=== PATIENT | male | born 1960 | race African-American/Black ===

== ENCOUNTER 2018-04-16 19:29 | Inpatient (IN) | payer MEDICARE, MEDICAID ==
[~2018-04-16] VITALS: Ht 177.8 cm; Wt 77.1 kg
--- NOTE | 2018-04-16 19:50 | NUR ---
BB AMBULANCE FROM [facility], PER STAFF PT WAS BEING "AGGRESSIVE TOWARDS STAFF". PT NOTED TO BE AAOX1, SPEECH UNCLEAR D/T PT MUMBLING IN A LOW TONE. VSS. RESP EVEN AND UNLABORED. NO S/S OF ACUTE DISTRESS NOTED. PT SAFETY AND COMFORT MEASURES IN PLACE. PT PLACED IN GOWN AND FERRYBOAT OPERATOR HELPER AND POX. SI PRECAUTIONS IN PLACE. AWAITING MD FOR EVAL. WILL CONTINUE TO MONITOR PT.
[2018-04-16 20:02] LABS: BASOPHILS # (AUTO) 0.1 /CMM (0.0-0.2); BASOPHILS % (AUTO) 1.5 % (0.0-2.0); EOSINOPHILS % (AUTO) 4.4 % (0.0-6.0); HEMATOCRIT 33 % (39-51); HEMOGLOBIN 11.4 g/dL (13.5-17.5); LYMPHOCYTES # (AUTO) 1.2 /CMM (0.8-4.8); LYMPHOCYTES % (AUTO) 33.2 % (20.0-44.0); MEAN CORPUSCULAR HGB CONC 35 g/dl (31.0-36.0); MEAN CORPUSCULAR VOLUME 91 fL (80-96); MONOCYTES # (AUTO) 0.3 /CMM (0.1-1.30); MONOCYTES % (AUTO) 7.2 % (2.0-12.0); NEUTROPHILS # (AUTO) 1.9 /CMM (1.8-8.9); NEUTROPHILS % (AUTO) 53.7 % (43.0-81.0); PLATELET COUNT (AUTO) 185 /CMM (150-450); RDW COEFFICIENT OF VARIATION 13.9 (11.5-15.0); WHITE BLOOD COUNT (AUTO) 3.7 K/uL (4.3-11.0)
[2018-04-16 20:09] LABS: CALCIUM, SERUM 8.8 mg/dL (8.5-10.1); CARBON DIOXIDE 30 mmol/L (21-32); CHLORIDE 104 mmol/L (98-107); CREATININE 1.3 mg/dL (0.6-1.3); GLUCOSE 106 mg/dL (74-106); POTASSIUM 3.7 mmol/L (3.5-5.1); SODIUM SERUM 140 mmol/L (136-145); UREA NITROGEN, BLOOD 23 mg/dL (7-18)
[2018-04-16 20:15] LABS: ALANINE AMINOTRANSFERASE 37 U/L (12-78); ALBUMIN 3.9 g/dL (3.4-5.0); ALCOHOL, BLOOD < 3 mg/dL (0-0); ALKALINE PHOSPHATASE 61 U/L (46-116); ASPARTATE AMINOTRANSFERASE 52 U/L (15-37); BILIRUBIN,DIRECT 0.2 mg/dL (0.0-0.2); TOTAL PROTEIN, SERUM 7.2 g/dL (6.4-8.2)
[2018-04-16 20:16] LABS: ACETAMINOPHEN 0 ug/ml (10-30); SALICYLATE < 0.2 mg/dL (2.8-20.0)
--- NOTE | 2018-04-16 20:17 | NUR ---
URINE SAMPLE COLLECTED AND CALLED LAB FOR PICKUP
[2018-04-16 21:20] LABS: APPEARANCE,URINE SL CLOUDY (CLEAR); BILIRUBIN,URINE NEGATIVE (NEGATIVE); BLOOD, URINE NEGATIVE Ery/uL (NEGATIVE); COLOR,URINE YELLOW (YELLOW); KETONES,URINE NEGATIVE (NEGATIVE); LEUKOCYTE ESTERASE ,URINE NEGATIVE (NEGATIVE); NITRITE, URINE NEGATIVE (NEGATIVE); PROTEIN,URINE NEGATIVE (NEGATIVE); UGLUCOSE NEGATIVE (NEGATIVE)
--- NOTE | 2018-04-16 21:31 | NUR ---
RAJI APPIAH [phone]
[2018-04-16 21:33] LABS: BACTERIA,URINE None seen /HPF (None Seen); RBC,URINE 0-2 /HPF (0-2); SQUAMOUS EPITHELIAL CELL,UR Rare /HPF (None Seen); WBC,URINE 0-2 /HPF (0-3)
--- NOTE | 2018-04-16 21:56 | NUR ---
Patient is resting comfortably in bed with eyes closed. Easily aroused. VSS. WILL CONTINUE TO MONITOR PT'S SAFETY
--- NOTE | 2018-04-16 22:07 | NUR ---
PINKY AT BEDSIDE FOR EVAL.
--- NOTE | 2018-04-16 22:21 | NUR ---
PT ASSIGNED TO DR. BONITA VILLALOBOS
--- NOTE | 2018-04-16 22:36 | NUR ---
REPORT GIVEN TO MAGGIE VESSEL CREW MEMBER CLAY FOR YARY.
[2018-04-16 23:00] VITALS: BP 136/88
--- NOTE | 2018-04-16 23:00 | NUR ---
GPS ADMISSION NOTE, RECEIVED PATIENT FROM [facility] PATIENT ARRIVED ON THIS UNIT AT 2300 VIA STRETCHER WITH 1 FLOOR TRADER ESCORT. PATIENT ADMITTED ON A 5150 HOLD FOR DTO & GD. PER HOLD PATIENT CONFUSED, DISORGANIZED, PHYSICALLY THREATENING STAFF MEMBERS AT FACILITY. PATIENT UNABLE TO CONTRACT FOR SAFETY. THE 5150 WAS REVIEWED AND THE DOCUMENTATION IN THE 5150 HOLD APPEARS TO REFLECT THE PRESENTATION OF THE PATIENT. UPON FACE TO FACE ASSESSMENT PATIENT IS CURRENTLY LYING IN BED AWAKE, HAS NO S/S OR COMPLAINTS OF PAIN. PATIENT IS DISPLAYING NO S/S OF APPARENT DISTRESS. PATIENT BREATHING IS UNLABORED WITH EQUAL RISE AND FALL OF THE CHEST. PATIENT IS ALERT AND ORIENTATED X 1. ON ROOM AIR. PATIENT ASSISTED WITH TURING AND REPOSITIONING Q2HR AND PRN FOR COMFORT AND CIRCULATION. PATIENT HAS NO NEEDS AT THIS TIME. PATIENT IS NOTED TO BEING CONFUSED, DISHEVELED, DISORGANIZED, UNCOOPERATIVE, MUMBLING TO SELF AND NEEDS REDIRECTION. PATIENT IS UNDER THE PSYCHIATRIC CARE OF DR. NOLAN AND THE MEDICAL CARE OF DR REYES. PATIENT BELONGINGS WERE INVENTORIED AND CHECKED FOR CONTRABAND. ALL CONTRABAND REMOVED AND STORED IN PATIENT HALLWAY LOCKER. PATIENT ADVANCED DIRECTIVES PREFERENCE, IMMUNIZATIONS QUESTIONER, NECESSARY PAPERWORK, BUT SKIN ASSESSMENT WAS REFUSED BY PATIENT. PATIENT ORIENTATED TO ROOM, FLOOR, AND STAFF WITH ALL QUESTIONS ANSWERED. PATIENT EDUCATED ON THE USE OF THE CALL SOLIMAN. PATIENT BED SIDE RAILS ARE UP X 2 FOR SAFETY. PATIENT BED IS LOCKED, LOW AND I WILL CONTINUE TO MONITOR THIS PATIENT Q 15 MIN WITH THE HELP OF STAFF TO MAINTAIN SAFETY.
[2018-04-16] MEDS ORDERED: DOCU-141 PO (23:19)
[2018-04-16] MEDS ORDERED: MULT1TAB73 PO (23:20)
[2018-04-16] MEDS ORDERED: FERR325T23 PO (23:21)
[2018-04-16] MEDS ORDERED: GABA-532 PO (23:21)
[2018-04-16] MEDS ORDERED: HALO5TAB PO (23:22)
[2018-04-16] MEDS ORDERED: HYDR-4077 PO (23:22)
[2018-04-16] MEDS ORDERED: ESCI10TA PO (23:23)
[2018-04-16] MEDS ORDERED: METO50TA16 PO (23:25)
[2018-04-16] MEDS ORDERED: HYDR50CA PO (23:26)
[2018-04-16] MEDS ORDERED: ZOLPIDEM TARTRATE 5 MG TABLET PO PRN (23:30)
[2018-04-16] MEDS ORDERED: MAGNESIUM HYDROXIDE 30 ML UDC PO PRN (23:30)
[2018-04-16] MEDS ORDERED: ACETAMINOPHEN 325 MG TABLET PO PRN (23:30)
[2018-04-16] MEDS ORDERED: MAG HYDROX/AL HYDROX/SIMETH 30 ML UDC PO PRN (23:30)
[2018-04-17 07:18] LABS: CREATININE 1.2 mg/dL (0.6-1.3)
[2018-04-17 07:22] LABS: CHOLESTEROL 162 mg/dL (<200); HDL CHOLESTEROL 48 mg/dL (40-60); LDL 112 mg/dL (0-99); TRIGLYCERIDES 53 mg/dL (30-150)
[2018-04-17 08:04] VITALS: BP 132/80
[2018-04-17] MEDS: hydrALAZINE HCL 50 MG TABLET PO SCH ×2 (08:20→16:15)
[2018-04-17] MEDS: METOPROLOL TARTRATE 50 MG TABLET PO SCH ×2 (08:20→16:14)
[2018-04-17] MEDS: FERROUS SULFATE (325 MG) 325 MG/TAB TABLET PO SCH (08:21)
[2018-04-17] MEDS: DOCUSATE SODIUM 100 MG CAPSULE PO SCH ×2 (08:21→16:14)
[2018-04-17] MEDS: GABAPENTIN 100 MG CAPSULE PO SCH ×3 (08:21→16:14)
[2018-04-17] MEDS ORDERED: QUETIAPINE FUMARATE 25 MG TABLET PO PRN (10:00)
[2018-04-17] MEDS: risperiDONE 1 MG TABLET PO SCH ×2 (14:10→21:48)
[2018-04-17] MEDS: OXCARBAZEPINE 150 MG TABLET PO SCH ×2 (14:10→21:48)
[2018-04-17 16:14] VITALS: BP 148/52
--- NOTE | 2018-04-17 16:19 | NUR ---
SW spoke to pt's DPOA, Brigid Montez , for collateral information regarding the psychosocial assessment.
--- NOTE | 2018-04-17 19:35 | NUR ---
GPS RN NOTE: RECEIVED PATIENT ASLEEP AND SITTING UP IN UBALDO-CHAIR WITH 1:1 IN DAY ROOM BUT AWAKENED TO NAME, NO S/S OR COMPLAINTS OF PAIN AT THIS TIME. PATIENT DISPLAYING NO S/S OF APPARENT DISTRESS AT THIS TIME. PATIENT IS CONFUSED AND ORIENTED X 1. PATIENT DENIES SUICIDE IDEATIONS AND HOMICIDAL IDEATIONS AT THIS TIME. WILL CONTINUE TO MONITOR AND MAINTAIN AND MAINTAIN SAFETY.
[2018-04-17 20:00] VITALS: BP 119/80
[2018-04-18 08:00] VITALS: BP 139/86
[2018-04-18] MEDS: OXCARBAZEPINE 150 MG TABLET PO SCH ×3 (08:09→21:32)
[2018-04-18] MEDS: DOCUSATE SODIUM 100 MG CAPSULE PO SCH ×2 (08:09→16:25)
[2018-04-18] MEDS: METOPROLOL TARTRATE 50 MG TABLET PO SCH ×2 (08:09→16:25)
[2018-04-18] MEDS: FERROUS SULFATE (325 MG) 325 MG/TAB TABLET PO SCH (08:09)
[2018-04-18] MEDS: hydrALAZINE HCL 50 MG TABLET PO SCH ×2 (08:10→16:25)
[2018-04-18] MEDS: GABAPENTIN 100 MG CAPSULE PO SCH ×3 (08:10→16:26)
[2018-04-18] MEDS: risperiDONE 1 MG TABLET PO SCH ×2 (08:10→21:31)
--- NOTE | 2018-04-18 12:40 | NUR ---
Initial Discharge Plan: [place] [address] [ ]. SW will follow up with the facility about the plan of action. SW will follow up with the MD and the pt's DPOA, Brigid Montez , regarding the most appropriate discharge plan. SW will form a safe and proper discharge.
--- NOTE | 2018-04-18 15:23 | NUR ---
SW spoke to Mari from [facility] about the pt's bed hold which will be over on 04/23/18.
[2018-04-18 16:18] VITALS: BP 109/78
[2018-04-18 20:08] VITALS: BP 112/73
[2018-04-19 08:00] VITALS: BP 154/76
[2018-04-19] MEDS: hydrALAZINE HCL 50 MG TABLET PO SCH ×2 (08:36→16:56)
[2018-04-19] MEDS: DOCUSATE SODIUM 100 MG CAPSULE PO SCH ×2 (08:36→16:55)
[2018-04-19] MEDS: GABAPENTIN 100 MG CAPSULE PO SCH ×3 (08:36→16:55)
[2018-04-19] MEDS: FERROUS SULFATE (325 MG) 325 MG/TAB TABLET PO SCH (08:36)
[2018-04-19] MEDS: OXCARBAZEPINE 150 MG TABLET PO SCH ×3 (08:36→21:40)
[2018-04-19] MEDS: METOPROLOL TARTRATE 50 MG TABLET PO SCH ×2 (08:37→16:56)
[2018-04-19] MEDS ORDERED: risperiDONE 1 MG TABLET PO SCH (09:00)
[2018-04-19 16:00] VITALS: BP 113/75
[2018-04-19 20:00] VITALS: BP 104/70
[2018-04-19] MEDS: risperiDONE 1 MG TABLET PO SCH (21:40)
[2018-04-20 07:56] VITALS: BP 108/78
[2018-04-20] MEDS: METOPROLOL TARTRATE 50 MG TABLET PO SCH ×2 (08:21→16:22)
[2018-04-20] MEDS: GABAPENTIN 100 MG CAPSULE PO SCH ×3 (08:21→16:12)
[2018-04-20] MEDS: DOCUSATE SODIUM 100 MG CAPSULE PO SCH ×2 (08:21→16:12)
[2018-04-20] MEDS: OXCARBAZEPINE 150 MG TABLET PO SCH ×3 (08:21→21:28)
[2018-04-20] MEDS: risperiDONE 1 MG TABLET PO SCH ×2 (08:21→21:27)
[2018-04-20] MEDS: FERROUS SULFATE (325 MG) 325 MG/TAB TABLET PO SCH (08:21)
[2018-04-20] MEDS: hydrALAZINE HCL 50 MG TABLET PO SCH ×2 (08:22→16:12)
[2018-04-20 15:53] VITALS: BP 135/74
[2018-04-20 19:52] VITALS: BP 129/91
[2018-04-21 07:49] VITALS: BP 115/73
[2018-04-21] MEDS: DOCUSATE SODIUM 100 MG CAPSULE PO SCH ×2 (08:22→16:11)
[2018-04-21] MEDS: FERROUS SULFATE (325 MG) 325 MG/TAB TABLET PO SCH (08:22)
[2018-04-21] MEDS: METOPROLOL TARTRATE 50 MG TABLET PO SCH ×2 (08:22→16:12)
[2018-04-21] MEDS: risperiDONE 1 MG TABLET PO SCH ×2 (08:22→21:28)
[2018-04-21] MEDS: hydrALAZINE HCL 50 MG TABLET PO SCH ×2 (08:22→16:12)
[2018-04-21] MEDS: GABAPENTIN 100 MG CAPSULE PO SCH ×3 (08:23→16:11)
[2018-04-21] MEDS: OXCARBAZEPINE 150 MG TABLET PO SCH ×3 (08:24→21:28)
[2018-04-21 15:55] VITALS: BP 108/55
[2018-04-21 19:51] VITALS: BP 145/75
[2018-04-22 08:00] VITALS: BP 133/81
[2018-04-22] MEDS: hydrALAZINE HCL 50 MG TABLET PO SCH ×2 (08:19→16:08)
[2018-04-22] MEDS: DOCUSATE SODIUM 100 MG CAPSULE PO SCH ×2 (08:19→16:07)
[2018-04-22] MEDS: OXCARBAZEPINE 150 MG TABLET PO SCH ×3 (08:19→21:37)
[2018-04-22] MEDS: FERROUS SULFATE (325 MG) 325 MG/TAB TABLET PO SCH (08:20)
[2018-04-22] MEDS: METOPROLOL TARTRATE 50 MG TABLET PO SCH ×2 (08:20→16:07)
[2018-04-22] MEDS: risperiDONE 1 MG TABLET PO SCH ×2 (08:20→21:37)
[2018-04-22] MEDS: GABAPENTIN 100 MG CAPSULE PO SCH ×3 (08:20→16:07)
[2018-04-22 16:00] VITALS: BP 138/90
--- NOTE | 2018-04-22 19:05 | NUR ---
GPS-RN RECEIVED PATIENT UP IN CHAIR TOLERATED. NO ACUTE DISTRESS NOTED. PATIENT APPEARS CONFUSED, NO MANIFESTATION OF PAIN OR DISCOMFORT NOTED. ALL NEEDS ATTENDED AND ANTICIPATED. SAFETY PRECAUTIONS MAINTAINED. WILL CONTINUE TO MONITOR [id number] ROUNDS FOR SAFETY. 1939 - CALLED TO MY ATTENTION BY HEAD TEACHER IN THE DAY ROOM, RESPONDED BY TEAM TO ASSESS PATIENT. V/S TAKEN AND NOTED BP 114/77, R-19, P-81, T-98.1, O2 SATURATION @ 52%. REPOSITIONED PATIENT FOR COMFORT, RESPONSIVE TO TACTILE AND VERBAL STIMULI. CALLED RAPID RESPONSE AND CANCELLED DUE TO PATIENT IS BACK TO HIS NORMAL BASELINE. V/S STABLE AND O2 SATURATION WENT UP TO 95%. PATIENT PLACED BACK TO BED, HOB ELEVATED. SIDE RAILS UP. PATIENT WAS PLACED ON 1:1 SITTER FOR SAFETY. WILL MONITOR CLOSELY. 2129 - PATIENT ASLEEP, EASILY AROUSABLE, NO ACUTE RESPIRATORY OR DISTRESS NOTED, PATIENT TOOK HIS SCHEDULED MEDS, TOLERATED-WELL. WILL CONTINUE TO MONITOR.
[2018-04-22 20:17] VITALS: BP 114/77
[2018-04-23 08:00] VITALS: BP 97/69
[2018-04-23] MEDS: hydrALAZINE HCL 50 MG TABLET PO SCH ×2 (09:00→16:37)
[2018-04-23] MEDS: FERROUS SULFATE (325 MG) 325 MG/TAB TABLET PO SCH (09:01)
[2018-04-23] MEDS: DOCUSATE SODIUM 100 MG CAPSULE PO SCH ×2 (09:01→16:37)
[2018-04-23] MEDS: METOPROLOL TARTRATE 50 MG TABLET PO SCH ×2 (09:02→16:37)
[2018-04-23] MEDS: OXCARBAZEPINE 150 MG TABLET PO SCH ×3 (09:02→21:03)
[2018-04-23] MEDS: risperiDONE 0.25 MG TABLET PO SCH (09:02)
[2018-04-23] MEDS: GABAPENTIN 100 MG CAPSULE PO SCH ×3 (09:03→16:37)
--- NOTE | 2018-04-23 11:28 | NUR ---
JEY spoke to pt's DPOA, Brigid Montez , and informed her that the pt will be discharging on 04/25/18. DPOA is in agreement with the discharge plan of the pt returning to [facility].
--- NOTE | 2018-04-23 11:33 | NUR ---
JEY spoke to Mari from [facility] and informed her that the pt will be discharging on Saturday. JEY then faxed over a clinical to Mari ( ).
[2018-04-23] MEDS ORDERED: risperiDONE 1 MG TABLET PO ONE (15:30)
[2018-04-23 15:58] VITALS: BP 131/65
--- NOTE | 2018-04-23 19:45 | NUR ---
RN NOTES GPS RN NOTE: RECEIVED PATIENT ASLEEP LYING IN BED WITH 1:1 SITTER IN PATIENT ROOM BUT AWAKENED TO NAME, NO S/S OR COMPLAINTS OF PAIN AT THIS TIME. PATIENT DISPLAYING NO S/S OF APPARENT DISTRESS AT THIS TIME. PATIENT IS CONFUSED AND ORIENTED X 1. PATIENT DENIES SUICIDE IDEATIONS AND HOMICIDAL IDEATIONS AT THIS TIME. WILL CONTINUE TO MONITOR AND MAINTAIN AND MAINTAIN SAFETY.
[2018-04-23] MEDS: risperiDONE 1 MG TABLET PO SCH (20:15)
[2018-04-23 20:29] VITALS: BP 132/76
[2018-04-24 08:00] VITALS: BP 140/85
[2018-04-24] MEDS: hydrALAZINE HCL 50 MG TABLET PO SCH ×2 (08:34→17:36)
[2018-04-24] MEDS: DOCUSATE SODIUM 100 MG CAPSULE PO SCH ×2 (08:34→17:35)
[2018-04-24] MEDS: GABAPENTIN 100 MG CAPSULE PO SCH ×3 (08:34→17:35)
[2018-04-24] MEDS: FERROUS SULFATE (325 MG) 325 MG/TAB TABLET PO SCH (08:34)
[2018-04-24] MEDS: METOPROLOL TARTRATE 50 MG TABLET PO SCH ×2 (08:38→17:39)
[2018-04-24] MEDS: OXCARBAZEPINE 150 MG TABLET PO SCH ×3 (08:39→21:50)
[2018-04-24] MEDS: risperiDONE 0.25 MG TABLET PO SCH (08:39)
--- NOTE | 2018-04-24 09:37 | NUR ---
SW spoke to Mari from [facility] and she stated that the pt needs to be assessed by someone from their team before being discharged and that may not be possible until Saturday.
[2018-04-24 16:00] VITALS: BP 139/80
--- NOTE | 2018-04-24 16:03 | NUR ---
JEY spoke to the psychiatrist, Dr. Yoon ([phone]), and agreed that the pt's discharge will be put on hold and will be set for Saturday at the earliest.
--- NOTE | 2018-04-24 16:04 | NUR ---
SW spoke to pt's DPOA, Brigid Montez , and updated her about the change in the discharge plan.
--- NOTE | 2018-04-24 19:30 | NUR ---
GPS RN NOTE, RECEIVED PATIENT AWAKE AND IN BED, NO S/S OR COMPLAINTS OF PAIN AT THIS TIME. PATIENT DISPLAYING NO S/S OF APPARENT DISTRESS AT THIS TIME. PATIENT BREATHING IS UNLABORED WITH EQUAL RISE AND FALL OF THE CHEST. PATIENT ALERT AND ORIENTED X 1 WITH A SPO2 97%. PATIENT IS MED COMPLIANT, CONFUSED, DISORGANIZED, ANXIOUS, COOPERATIVE, NEEDS REORIENTATION. PATIENT DENIES SUICIDE IDEATIONS AND HOMICIDAL IDEATIONS AT THIS TIME. PATIENT ASSISTED WITH TURNING AND REPOSITIONING Q2HR AND PRN FOR COMFORT AND CIRCULATION. PATIENT HAS NO NEEDS AT THIS TIME. PATIENT EDUCATED ON THE USE OF THE CALL SOLIMAN. PATIENT BED SIDE RAILS UP X2 FOR SAFETY, BED IS LOCKED AND LOW WILL CONTINUE TO MONITOR AND MAINTAIN AND MAINTAIN SAFETY.
[2018-04-24 20:34] VITALS: BP 137/88
[2018-04-24] MEDS: risperiDONE 1 MG TABLET PO SCH (21:49)
[2018-04-25 08:00] VITALS: BP 116/66
[2018-04-25] MEDS: FERROUS SULFATE (325 MG) 325 MG/TAB TABLET PO SCH (08:59)
[2018-04-25] MEDS: DOCUSATE SODIUM 100 MG CAPSULE PO SCH ×2 (08:59→17:25)
[2018-04-25] MEDS: hydrALAZINE HCL 50 MG TABLET PO SCH ×2 (08:59→17:26)
[2018-04-25] MEDS: METOPROLOL TARTRATE 50 MG TABLET PO SCH ×2 (09:00→17:26)
[2018-04-25] MEDS: OXCARBAZEPINE 150 MG TABLET PO SCH ×3 (09:02→21:13)
[2018-04-25] MEDS: risperiDONE 0.25 MG TABLET PO SCH (09:02)
[2018-04-25] MEDS: GABAPENTIN 100 MG CAPSULE PO SCH ×3 (09:02→17:26)
--- NOTE | 2018-04-25 13:26 | NUR ---
GPS KINDERGARTEN TUTOR: NOTES AFTERNOON MEDS HELD DUE TO DROWSINESS. PT UP IN GERICHAIR IN THE DINING ROOM WITH EYES CLOSE, APPEARS VERY SLEEPY. MONITORED CLOSELY. WILL CONTINUE TO MONITOR.
--- NOTE | 2018-04-25 14:00 | NUR ---
JEY spoke to Mari from [facility] and she stated that someone is going to come and assess the pt on Saturday, April 28 around lunch time. Pt will then be discharged that day if the facility accepts him.
[2018-04-25 15:56] VITALS: BP 114/77
[2018-04-25 20:03] VITALS: BP 121/74
[2018-04-25] MEDS: risperiDONE 1 MG TABLET PO SCH (21:12)
[2018-04-26 08:00] VITALS: BP 137/68
[2018-04-26] MEDS: DOCUSATE SODIUM 100 MG CAPSULE PO SCH ×2 (10:23→17:38)
[2018-04-26] MEDS: GABAPENTIN 100 MG CAPSULE PO SCH ×3 (10:23→17:38)
[2018-04-26] MEDS: risperiDONE 0.25 MG TABLET PO SCH (10:24)
[2018-04-26] MEDS: FERROUS SULFATE (325 MG) 325 MG/TAB TABLET PO SCH (10:25)
[2018-04-26] MEDS: METOPROLOL TARTRATE 50 MG TABLET PO SCH ×2 (10:25→17:00)
[2018-04-26] MEDS: hydrALAZINE HCL 50 MG TABLET PO SCH ×2 (10:25→17:00)
[2018-04-26] MEDS: OXCARBAZEPINE 150 MG TABLET PO SCH ×3 (10:28→21:28)
--- NOTE | 2018-04-26 13:40 | NUR ---
DR. NOLAN IN INQUIRING ABOUT MEDS,AWARE PARTIALLY TOOK MEDS AND GROGGY.ADDITIONALLY TOLD HIM NO MEDS GIVEN ON DAY SHIFT YESTERDAY.
[2018-04-26 16:00] VITALS: BP 117/73
[2018-04-26 20:00] VITALS: BP 113/69
[2018-04-26] MEDS: risperiDONE 1 MG TABLET PO SCH (21:00)
--- NOTE | 2018-04-27 00:53 | NUR ---
Pt has been combative on approach, easily irritable, & initially refusing his meds but took them later. He has also been very confused/fragmented.
[2018-04-27] MEDS: risperiDONE 0.25 MG TABLET PO SCH (07:58)
[2018-04-27] MEDS: GABAPENTIN 100 MG CAPSULE PO SCH ×3 (07:58→16:56)
[2018-04-27] MEDS: DOCUSATE SODIUM 100 MG CAPSULE PO SCH ×2 (07:58→16:56)
[2018-04-27] MEDS: FERROUS SULFATE (325 MG) 325 MG/TAB TABLET PO SCH (07:58)
[2018-04-27] MEDS: METOPROLOL TARTRATE 50 MG TABLET PO SCH ×2 (07:59→16:57)
[2018-04-27] MEDS: hydrALAZINE HCL 50 MG TABLET PO SCH ×2 (07:59→16:57)
[2018-04-27] MEDS: OXCARBAZEPINE 150 MG TABLET PO SCH ×3 (07:59→21:18)
[2018-04-27 08:00] VITALS: BP 146/96
[2018-04-27 16:12] VITALS: BP 114/81
[2018-04-27 20:02] VITALS: BP 125/65
[2018-04-27] MEDS: risperiDONE 1 MG TABLET PO SCH (21:17)
[2018-04-28 08:00] VITALS: BP 117/87
[2018-04-28] MEDS: risperiDONE 0.25 MG TABLET PO SCH (08:18)
[2018-04-28] MEDS: GABAPENTIN 100 MG CAPSULE PO SCH ×3 (08:18→16:35)
[2018-04-28] MEDS: FERROUS SULFATE (325 MG) 325 MG/TAB TABLET PO SCH (08:18)
[2018-04-28] MEDS: DOCUSATE SODIUM 100 MG CAPSULE PO SCH ×2 (08:18→16:34)
[2018-04-28] MEDS: OXCARBAZEPINE 150 MG TABLET PO SCH ×3 (08:19→21:42)
[2018-04-28] MEDS: hydrALAZINE HCL 50 MG TABLET PO SCH ×2 (08:19→16:35)
[2018-04-28] MEDS: METOPROLOL TARTRATE 50 MG TABLET PO SCH ×2 (08:20→16:35)
--- NOTE | 2018-04-28 09:15 | NUR ---
JEY spoke to Mari from [facility] to confirm that someone would be coming to assess the pt after lunch.
--- NOTE | 2018-04-28 09:47 | NUR ---
WOUND CARE CONSULT: PT AGITATED AND COMBATIVE AT TIMES. RECOMMENDATIONS MADE FOR DRY SKIN AND SKIN PROTECTION. DISCUSSED WITH NURSING STAFF. WILL SEE PT PT CONDITION PERMITS.
[2018-04-28] MEDS ORDERED: Z GUARD REMEDY 2 OZ OINT TP PRN (10:00)
[2018-04-28] MEDS: MINERAL OIL/PETROLATUM,WHITE 120 GM JAR TP SCH (13:39)
--- NOTE | 2018-04-28 15:45 | NUR ---
JEY spoke to Mari from [facility] and she stated that the assessors will be conducting their assessment tomorrow morning because they were unable to come today.
[2018-04-28 16:00] VITALS: BP 129/74
[2018-04-28 19:42] VITALS: BP 150/82
[2018-04-28] MEDS: risperiDONE 1 MG TABLET PO SCH (21:42)
[2018-04-29 08:00] VITALS: BP 111/67
[2018-04-29] MEDS: DOCUSATE SODIUM 100 MG CAPSULE PO SCH ×2 (09:00→17:35)
[2018-04-29] MEDS: risperiDONE 0.25 MG TABLET PO SCH (09:00)
[2018-04-29] MEDS: METOPROLOL TARTRATE 50 MG TABLET PO SCH ×2 (09:00→17:34)
[2018-04-29] MEDS: MINERAL OIL/PETROLATUM,WHITE 120 GM JAR TP SCH (09:00)
[2018-04-29] MEDS: hydrALAZINE HCL 50 MG TABLET PO SCH ×2 (09:00→17:35)
[2018-04-29] MEDS: GABAPENTIN 100 MG CAPSULE PO SCH ×3 (09:00→17:35)
[2018-04-29] MEDS: FERROUS SULFATE (325 MG) 325 MG/TAB TABLET PO SCH (09:00)
[2018-04-29] MEDS: OXCARBAZEPINE 150 MG TABLET PO SCH ×3 (09:00→22:11)
--- NOTE | 2018-04-29 15:23 | NUR ---
SW had the other vp digital marketing social media and crm, Brigette, speak to the assessors due to orientation and the assessors stated that the pt was denied to return to [facility].
--- NOTE | 2018-04-29 15:23 | NUR ---
SW faxed referrals for the pt to [facility], [facility], [facility] [employer], and [facility].
[2018-04-29 16:00] VITALS: BP 127/78
[2018-04-29 20:38] VITALS: BP 115/69
[2018-04-29] MEDS: risperiDONE 1 MG TABLET PO SCH (21:52)
[2018-04-30 08:00] VITALS: BP 125/63
--- NOTE | 2018-04-30 08:43 | NUR ---
SW spoke to Bertin ([phone]) from [facility] and Vasiliy from [facility] ([phone]) who both denied the pt's referral.
[2018-04-30] MEDS: DOCUSATE SODIUM 100 MG CAPSULE PO SCH ×2 (09:05→16:34)
[2018-04-30] MEDS: risperiDONE 0.25 MG TABLET PO SCH (09:06)
[2018-04-30] MEDS: GABAPENTIN 100 MG CAPSULE PO SCH ×3 (09:06→16:34)
[2018-04-30] MEDS: FERROUS SULFATE (325 MG) 325 MG/TAB TABLET PO SCH (09:06)
[2018-04-30] MEDS: OXCARBAZEPINE 150 MG TABLET PO SCH ×3 (09:06→21:35)
[2018-04-30] MEDS: hydrALAZINE HCL 50 MG TABLET PO SCH ×2 (09:06→16:39)
[2018-04-30] MEDS: METOPROLOL TARTRATE 50 MG TABLET PO SCH ×2 (09:06→16:34)
[2018-04-30] MEDS: MINERAL OIL/PETROLATUM,WHITE 120 GM JAR TP SCH (09:07)
--- NOTE | 2018-04-30 14:46 | NUR ---
SW spoke to the advertising coordinator at [facility] ([phone]) and faxed more information over because it was confirmed that the pt will be discharging to their facility tomorrow, May 01, at 11:00AM.
--- NOTE | 2018-04-30 14:50 | NUR ---
SW spoke to pt's DPOA, Brigid Montez , and discussed the new discharge plan that will be occurring tomorrow, May 01.
[2018-04-30 16:00] VITALS: BP 117/75
[2018-04-30] MEDS ORDERED: GABAPENTIN 300 MG CAPSULE PO SCH (17:30)
[2018-04-30 20:26] VITALS: BP 140/86
[2018-04-30] MEDS: risperiDONE 1 MG TABLET PO SCH (21:35)
[2018-05-01 08:00] VITALS: BP 139/78
[2018-05-01] MEDS: OXCARBAZEPINE 150 MG TABLET PO SCH (08:45)
[2018-05-01] MEDS: hydrALAZINE HCL 50 MG TABLET PO SCH (08:45)
[2018-05-01 08:46] VITALS: BP 139/78
[2018-05-01] MEDS: FERROUS SULFATE (325 MG) 325 MG/TAB TABLET PO SCH (08:46)
[2018-05-01] MEDS: DOCUSATE SODIUM 100 MG CAPSULE PO SCH (08:46)
[2018-05-01] MEDS: MINERAL OIL/PETROLATUM,WHITE 120 GM JAR TP SCH (08:46)
[2018-05-01] MEDS: risperiDONE 0.25 MG TABLET PO SCH (08:46)
[2018-05-01] MEDS: METOPROLOL TARTRATE 50 MG TABLET PO SCH (08:46)
--- NOTE | 2018-05-01 12:10 | NUR ---
GPS/RN PATIENT CLEARED FOR DISCHARGE TO [facility] BY DR NOLAN AND DR CALVILLO. MEDICATIONS RECONCILED BY BOTH [facility] AND MED RECON FAXED TO FACILITY. PATIENT IS UNABLE TO SIGNS D/C PAPERWORK, COSIGNED BY 2 RN AND BELONGINGS RETURNED TO PATIENT. PATIENT DENIES SI/HI/AH UPON DISCHARGE, PSYCHIATRIC TREATMENT PLANS MET,PATIENT IS ALERT X 1 AND CONFUSED NO AGGRESSION OR AGITATION DURING SHIFT. REPORT GIVEN TO ASHLEIGH AT FACILITY, PATIENT REFUSED D/C PHOTO, LEFT UNIT CALM, COOPERATIVE, NO DISTRESS NOTED WITH AMBULANCE TRANSPORT AT SIDE.
--- NOTE | 2018-05-01 12:16 | NUR ---
Discharge Note: Pt will be discharged to [facility] which is located at [address] [place] [address]; ([phone]). Pt will be transported via [facility] (Trip #[id number]) at 10:30 AM and will be in Bed 18A. Pt denied suicidal and homicidal ideation as well as visual and auditory hallucinations. Pts mood and affect are calm and euthymic. Pt was agreeable to the placement and DPOA, Brigid Montez ([phone]), has also agreed. Pt was given referrals for substance abuse such as [facility] on [address] [place], [place] [phone] , [facility] on [address], [place] [phone] and [facility] on [address] [place], [place] [id number] . Pt will be under the care of a psychiatrist, Dr. Yoon ( [facility] [address], [place] [address]; [phone]) and a medical doctor, Dr. Altamirano ([address] [place] [id number]; [phone]).
--- NOTE | 2018-08-01 15:34 | NUR ---
Substance Abuse Follow Up: Pt is excluded from the follow up because he was discharged to a group home facility called [facility].
== END 2018-05-01 12:10 | DRG 885 ==
LOC: ER 19:32 → GPS 22:49
PROVIDERS: ADMIT Internal Medicine Nephrology; ATTEND Psychiatry & Neurology Psychiatry
DX: F39 Unspecified mood [affective] disorder (principal); N18.9 Chronic kidney disease, unspecified; F23 Brief psychotic disorder; D64.9 Anemia, unspecified; I12.9 Hypertensive chronic kidney disease with stage 1 through stage 4 chronic kidney disease, or unspecified chronic kidney disease; F31.9 Bipolar disorder, unspecified; F41.9 Anxiety disorder, unspecified; F03.90 Unspecified dementia, unspecified severity, without behavioral disturbance, psychotic disturbance, mood disturbance, and anxiety; G31.84 Mild cognitive impairment of uncertain or unknown etiology; F25.9 Schizoaffective disorder, unspecified; D72.819 Decreased white blood cell count, unspecified
CPT/HCPCS: 36415; 80048-TC; 80061-TC; 80076-TC; 80305; 81000-TC; 82565-TC; 82962-TC; 85025-TC; A4606; G0480; Z7610